=== PATIENT | male | born 1970 | race African-American/Black ===

== ENCOUNTER 2017-06-26 00:43 | Inpatient (IN) | payer MEDICAID ==
[~2017-06-26] VITALS: Ht 188 cm; Wt 93.8 kg
[2017-06-26] VITALS (7 sets, daily range): BP systolic 119–132; BP diastolic 58–77; PULSE 79–96; RESP 16–17; TEMP 96.5–97.9; O2SAT 96–100
[~2017-06-26 00:43] MED LIST: BACT800T5 PO; CIPR500T4 PO; LANTUS2P SC; NOVOLOGSS SQ
[2017-06-26] MEDS ORDERED: IOHEXOL 350 MG/ML 10 ML VIAL (for RAD DIAG) IVCONTRAST ONE (00:44)
[2017-06-26] MEDS ORDERED: ceFAZolin 2 GM PREMIX 50 ML ONE (00:48)
[2017-06-26 01:03] LABS: I-STAT POTASSIUM 3.7 MMOL/L (3.5-4.9); I-STAT SODIUM 135 MMOL/L (138-146)
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
[2017-06-26] MEDS ORDERED: HYDROmorphone HCL PF 1 MG/ML VIAL ONE (01:12)
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
[2017-06-26] MEDS: SODIUM CHLOR 0.9% 1000 ML INJ 1,000 ML IV SCH ×2 (01:14→11:28)
[2017-06-26] MEDS ORDERED: SODIUM CHLORIDE 0.9% FLUSH 10 ML FLUSH IV FLUSH PRN (01:15)
[2017-06-26] MEDS ORDERED: ONDANSETRON HCL 4 MG/2 ML VIAL IV PRN (01:15)
[2017-06-26] MEDS ORDERED: DEXTROSE 50% IN WATER 50 ML VIAL(D50) IV PUSH PRN (01:15)
[2017-06-26] MEDS ORDERED: GLUCAGON 1 MG/ML VIAL OTHER PRN (01:15)
[2017-06-26] MEDS ORDERED: ACETAMINOPHEN/HYDROcodone 325 MG/5 MG TAB PO PRN (01:15)
[2017-06-26] MEDS ORDERED: ENALAPRILAT 1.25 MG/ML VIAL IV PRN (01:15)
[2017-06-26] MEDS ORDERED: PANTOPRAZOLE SODIUM 40 MG VIAL IVP SCH (01:15)
[2017-06-26 01:19] LABS: ALCOHOL LESS THAN 3 MG/DL (0-5)
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
[2017-06-26 01:30] LABS: AUTOMATED NEUTROPHIL # 8.6 TH/MM3 (1.8-7.7); BASOPHIL # 0.2 TH/MM3 (0-0.2); BASOPHIL % 1.7 % (0.0-2.0); EOSINOPHIL # 0.3 TH/MM3 (0-0.4); HEMATOCRIT 41.1 % (39.0-51.0); LYMPH % 29.6 % (9.0-44.0); LYMPHOCYTE # 4.3 TH/MM3 (1.0-4.8); MEAN CELL VOLUME 65.4 FL (80.0-100.0); MEAN CORPUSCULAR HEMOGLOBIN 20.8 PG (27.0-34.0); MEAN CORPUSCULAR HGB CONC 31.8 % (32.0-36.0); MONO % 7.4 % (0.0-8.0); NEUT % 59.3 % (16.0-70.0); PLATELET COUNT 187 TH/MM3 (150-450); RED BLOOD COUNT 6.29 MIL/MM3 (4.50-5.90); RED CELL DISTRIBUTION WIDTH 19.6 % (11.6-17.2); WHITE BLOOD COUNT 14.4 TH/MM3 (4.0-11.0)
[2017-06-26] MEDS ORDERED: HYDROmorphone HCL PF 1 MG/ML VIAL IV PUSH ONE (01:30)
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
[2017-06-26 01:32] LABS: HEMO FLAGS AUTO DIFF
[2017-06-26 01:42] LABS: APTT (PATIENT) 19.4 SEC (24.3-30.1); PROTHROMBIN TIME - PATIENT 10.6 SEC (9.8-11.6)
[2017-06-26] MEDS: HYDROmorphone HCL PF 1 MG/ML VIAL IVP PRN ×2 (02:34→06:05)
[2017-06-26 03:39] LABS: BANDS 6 % (0-6); CORRECTED NUCLEATED RBC 6 /100 WBC (0-0); EOSINOPHILS 7 % (0-4); NEUTROPHIL # MANUAL DIFF 7.9 TH/MM3 (1.8-7.7); POLYS (SEG NEUTROPHILS) 52 % (16-70); SCAN/DIFF FINAL DIFF MANUAL; WBC DIFF SAMPLE 100
[2017-06-26 03:40] LABS: ACANTHOCYTES OCC (NORMAL); SPHEROCYTES 1+ (NORMAL); TARGET CELLS 2+ (NORMAL)
[2017-06-26 03:41] LABS: PLATELET ESTIMATE SMEAR NORMAL (NORMAL); PLATELET MORPHOLOGY ENLARGED (NORMAL)
[2017-06-26] MEDS: ACETAMINOPHEN/HYDROcodone 325 MG/5 MG TAB PO PRN ×4 (03:54→15:44)
[2017-06-26] MEDS ORDERED: LANTUS2P SQ ×2 (03:57→20:49)
[2017-06-26] MEDS: INSULIN NovoLIN REGULAR SUPPLEMENTAL SCALE SQ SCH ×2 (06:33→11:21)
[2017-06-26] MEDS ORDERED: LIDOCAINE HCL 5% PATCH T-DERMAL SCH (09:00)
[2017-06-26] MEDS ORDERED: DOCUSATE SODIUM 50 MG/SENNA 8.6 MG TAB PO SCH (09:00)
[2017-06-26] MEDS: ceFAZolin 2 GM PREMIX 50 ML IV SCH ×2 (09:06→15:02)
[2017-06-26] MEDS: METHOCARBAMOL 500 MG TAB PO SCH ×2 (09:08→15:43)
[2017-06-26] MEDS ORDERED: INSULIN DETEMIR 100 UNITS/ML VIAL SQ SCH (10:00)
[2017-06-26] MEDS ORDERED: SENN1TAB PO (11:17)
[2017-06-26] MEDS ORDERED: MAGN400S PO (11:17)
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
[2017-06-26] MEDS ORDERED: DIPHTH/TETANUS/ACEL PERTUSSIS (BOOSTER) 0.5 ML VIAL/PFS IM ONE (15:30)
[2017-06-26] MEDS ORDERED: MAGNESIUM HYDROXIDE SUSP 30 ML CUP PO SCH (21:00)
[2017-06-27] MEDS ORDERED: MAGN400S PO (13:48)
[2017-06-27] MEDS ORDERED: SENN1TAB PO (13:48)
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
== END 2017-06-26 16:31 | disposition home or self-care (01) | DRG 604 ==
LOC: NEPI 00:43 → MERGE 01:49 → EDBD 01:49 → NEDA 01:49 → N06B 04:45
PROVIDERS: ADMIT Surgery; ATTEND Surgery
DX: S21.139A Puncture wound without foreign body of unspecified front wall of thorax without penetration into thoracic cavity, initial encounter (principal); S22.42XB Multiple fractures of ribs, left side, initial encounter for open fracture; E11.51 Type 2 diabetes mellitus with diabetic peripheral angiopathy without gangrene; T87.89 Other complications of amputation stump; S71.132A Puncture wound without foreign body, left thigh, initial encounter; S27.321A Contusion of lung, unilateral, initial encounter; S21.132A Puncture wound without foreign body of left front wall of thorax without penetration into thoracic cavity, initial encounter; S27.329A Contusion of lung, unspecified, initial encounter; S31.139A Puncture wound of abdominal wall without foreign body, unspecified quadrant without penetration into peritoneal cavity, initial encounter; X95.9XXA Assault by unspecified firearm discharge, initial encounter; Y93.9 Activity, unspecified; Y92.9 Unspecified place or not applicable; I10 Essential (primary) hypertension
CPT/HCPCS: 71010; 71260; 73560; 74177; 80307; 82435; 82565; 82947; 82948; 84132; 84295; 84520; 85007; 85027; 85610; 85730; 86850; 86900; 86901; 96374; 96375; 99291; C9113; G0390; J0690; J1170; J7030; Q9967

== ENCOUNTER 2017-06-26 19:55 | Inpatient (IN) | payer MEDICAID ==
[~2017-06-26] VITALS: Ht 185.4 cm; Wt 101.0 kg
[~2017-06-26 19:55] MED LIST changes: +LANTUS2P SQ; +MAGN400S PO; +SENN1TAB PO
[2017-06-26 19:58] VITALS: BP 129/70; PULSE 98; RESP 20; TEMP 98.4; O2SAT 96
[2017-06-26] MEDS ORDERED: LANTUS2P SQ (20:49)
[2017-06-26 20:51] VITALS: BP 119/69; PULSE 83; RESP 18; O2SAT 98
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
[2017-06-26 21:21] VITALS: RESP 18; O2SAT 98
[2017-06-26] MEDS ORDERED: SODIUM CHLORIDE 0.9% FLUSH 10 ML FLUSH IVF PRN ×2 (21:30→23:30)
[2017-06-26] MEDS ORDERED: SODIUM CHLOR 0.9% 1000 ML INJ 1,000 ML IV ONE (21:30)
[2017-06-26] MEDS ORDERED: MORPHINE SULFATE 4 MG/ML INJ IV PUSH ONE (21:30)
[2017-06-26 22:11] LABS: BASOPHIL # 0.1 TH/MM3 (0-0.2); BASOPHIL % 0.8 % (0.0-2.0); EOSINOPHIL # 0.2 TH/MM3 (0-0.4); HEMATOCRIT 35.2 % (39.0-51.0); LYMPH % 17.9 % (9.0-44.0); MEAN CELL VOLUME 64.6 FL (80.0-100.0); MEAN CORPUSCULAR HEMOGLOBIN 21.2 PG (27.0-34.0); MEAN CORPUSCULAR HGB CONC 32.7 % (32.0-36.0); MONO % 9.3 % (0.0-8.0); PLATELET COUNT 142 TH/MM3 (150-450); RED BLOOD COUNT 5.45 MIL/MM3 (4.50-5.90); RED CELL DISTRIBUTION WIDTH 19.3 % (11.6-17.2); WHITE BLOOD COUNT 11.4 TH/MM3 (4.0-11.0)
[2017-06-26 22:13] LABS: HEMO FLAGS AUTO DIFF
[2017-06-26 22:14] LABS: APTT (PATIENT) 24.4 SEC (24.3-30.1); PROTHROMBIN TIME - PATIENT 10.6 SEC (9.8-11.6)
[2017-06-26 22:29] LABS: BICARBONATE 25.7 MEQ/L (21.0-32.0); MAGNESIUM 2.1 MG/DL (1.5-2.5); POTASSIUM 3.9 MEQ/L (3.5-5.1)
[2017-06-26 22:30] VITALS: BP 113/66; PULSE 80; RESP 18; O2SAT 98
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
[2017-06-26 23:03] LABS: BANDS 4 % (0-6); CORRECTED NUCLEATED RBC 1 /100 WBC (0-0); EOSINOPHILS 2 % (0-4); NEUTROPHIL # MANUAL DIFF 8.6 TH/MM3 (1.8-7.7); POLYS (SEG NEUTROPHILS) 71 % (16-70); SCAN/DIFF FINAL DIFF MANUAL; WBC DIFF SAMPLE 100
[2017-06-26 23:04] LABS: PLATELET ESTIMATE SMEAR NORMAL (NORMAL)
[2017-06-26 23:05] LABS: PLATELET MORPHOLOGY NORMAL (NORMAL); STOMATOCYTES 1+ (NORMAL); TARGET CELLS 1+ (NORMAL)
[2017-06-26 23:08] LABS: POLYCHROMASIA 3.1 % (0.0-1.9)
[2017-06-26 23:09] LABS: SPHEROCYTES OCC (NORMAL)
[2017-06-26 23:10] LABS: ACANTHOCYTES 1+ (NORMAL)
[2017-06-26] MEDS ORDERED: ACETAMINOPHEN 325 MG TAB PO PRN (23:30)
[2017-06-26] MEDS ORDERED: ONDANSETRON HCL 4 MG/2 ML VIAL IV PRN (23:30)
[2017-06-26] MEDS ORDERED: SODIUM CHLORIDE 0.9% FLUSH 10 ML FLUSH IV FLUSH PRN (23:45)
[2017-06-27] VITALS (26 sets, daily range): BP systolic 119–156; BP diastolic 63–86; PULSE 75–113; RESP 16–20; TEMP 97.8–98.7; O2SAT 95–99
[2017-06-27] MEDS: MORPHINE SULFATE 4 MG/ML INJ IV PUSH PRN ×4 (00:22→12:18)
[2017-06-27 01:20] LABS: CKMB 6.8 NG/ML (0.5-3.6)
[2017-06-27] MEDS ORDERED: GLUCAGON 1 MG/ML VIAL OTHER PRN (01:45)
[2017-06-27] MEDS ORDERED: DEXTROSE 50% IN WATER 50 ML VIAL(D50) IV PRN (01:45)
[2017-06-27] MEDS: ACETAMINOPHEN/HYDROcodone 325 MG/5 MG TAB PO PRN ×2 (02:15→10:00)
[2017-06-27 05:17] LABS: CKMB 6.8 NG/ML (0.5-3.6)
[2017-06-27] MEDS: INSULIN ASPART SUPPLEMENTAL SCALE SQ SCH ×4 (06:18→21:00)
[2017-06-27] MEDS ORDERED: ACETAMINOPHEN 325 MG TAB PO PRN (07:45)
[2017-06-27] MEDS ORDERED: SODIUM CHLORIDE 0.9% FLUSH 10 ML FLUSH IV FLUSH PRN (07:45)
[2017-06-27] MEDS ORDERED: ENALAPRILAT 1.25 MG/ML VIAL IV PRN (07:45)
[2017-06-27] MEDS ORDERED: ONDANSETRON HCL 4 MG/2 ML VIAL IV PRN (07:45)
--- NOTE | 2017-06-27 08:21 | EKG ---
Date Performed: 06/27/2017 Time Performed: 00:11:27 PTAGE: 46 years EKG: Sinus rhythm T-WAVE ABNORMALITY, CONSIDER ANTEROLATERAL ISCHEMIA ABNORMAL ECG PREVIOUS TRACING : 06/26/2017 21.25 No significant change from previous tracing noted. DOCTOR: Justin Piña Interpretating Date/Time 06/27/2017 08:21:02
--- NOTE | 2017-06-27 08:25 | EKG ---
Date Performed: 06/26/2017 Time Performed: 21:25:48 PTAGE: 46 years EKG: Sinus rhythm T-WAVE ABNORMALITY, CONSIDER ANTEROLATERAL ISCHEMIA ABNORMAL ECG PREVIOUS TRACING : 11/09/2015 19.03 Compared to previous tracing, anterolateral T wave changes are now present. DOCTOR: Justin Piña Interpretating Date/Time 06/27/2017 08:23:34
[2017-06-27] MEDS: FAMOTIDINE 20 MG TAB PO SCH ×2 (08:36→21:28)
[2017-06-27] MEDS: DOCUSATE SODIUM 50 MG/SENNA 8.6 MG TAB PO SCH ×2 (08:36→21:28)
[2017-06-27] MEDS ORDERED: SODIUM CHLORIDE 0.9% FLUSH 10 ML FLUSH IV FLUSH SCH ×2 (09:00)
[2017-06-27] MEDS: SODIUM CHLORIDE 0.9% FLUSH 10 ML FLUSH IV FLUSH SCH ×2 (09:00→21:29)
[2017-06-27] MEDS: METHOCARBAMOL 500 MG TAB PO SCH ×3 (10:00→21:28)
[2017-06-27] MEDS: LIDOCAINE HCL 5% PATCH T-DERMAL SCH (10:01)
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
--- NOTE | 2017-06-27 11:17 | EKG ---
Date Performed: 06/27/2017 Time Performed: 03:37:42 PTAGE: 46 years EKG: Sinus rhythm Ant/septal and lateral T wave changes may be due to myocardial ischemia Abnormal ECG PREVIOUS TRACING : 06/27/2017 00.11 No significant change from previous tracing noted. DOCTOR: Justin Piña Interpretating Date/Time 06/27/2017 11:15:24
[2017-06-27] MEDS ORDERED: MAGN400S PO (13:48)
[2017-06-27] MEDS ORDERED: SENN1TAB PO (13:48)
[2017-06-27] MEDS ORDERED: oxyCODONE/ACETAMINOPHEN 5 MG/325 MG TAB PO PRN (15:30)
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
[2017-06-27] MEDS: HYDROmorphone HCL PF 1 MG/ML VIAL IV PUSH PRN ×2 (18:58→23:00)
[2017-06-27] MEDS: INSULIN DETEMIR 100 UNITS/ML VIAL SQ SCH (21:00)
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
[2017-06-27] MEDS: MAGNESIUM HYDROXIDE SUSP 30 ML CUP PO SCH (21:27)
[2017-06-27] MEDS: oxyCODONE/ACETAMINOPHEN 5 MG/325 MG TAB PO PRN (21:29)
[2017-06-28] VITALS (21 sets, daily range): BP systolic 106–156; BP diastolic 70–82; PULSE 72–99; RESP 18–20; TEMP 97.3–98.7; O2SAT 95–99
[2017-06-28] MEDS: HYDROmorphone HCL PF 1 MG/ML VIAL IV PUSH PRN ×4 (03:10→20:00)
[2017-06-28] MEDS: METHOCARBAMOL 500 MG TAB PO SCH ×3 (05:26→20:00)
[2017-06-28] MEDS: INSULIN ASPART SUPPLEMENTAL SCALE SQ SCH ×4 (05:27→20:06)
--- NOTE | 2017-06-28 05:58 | RADRPT ---
EXAM DATE/TIME: 06/28/2017 04:42 [place] COMPARISON: CHEST SINGLE AP, June 26, 2017, 21:43. INDICATIONS : Shortness of breath MEDICAL HISTORY : Hypertension. Diabetes mellitus type 2. SURGICAL HISTORY : None. ENCOUNTER: Subsequent ACUITY: 3 days PAIN SCORE: 7/10 LOCATION: Bilateral chest FINDINGS: A single view of the chest demonstrates a persistent rounded infiltrate in the left lower lobe. The cardiomediastinal contours are unremarkable. Osseous structures are intact. CONCLUSION: Normal examination with a persistent focal rounded infiltrate in the left lower lobe. Familia Agarwal MD on June 28, 2017 at 5:56 Board Certified Radiologist. This report was verified electronically.
[2017-06-28 07:05] LABS: AUTOMATED NEUTROPHIL # 8.1 TH/MM3 (1.8-7.7); BASOPHIL # 0.1 TH/MM3 (0-0.2); BASOPHIL % 0.6 % (0.0-2.0); EOSINOPHIL # 0.3 TH/MM3 (0-0.4); EOSINOPHIL % 2.4 % (0.0-4.0); HEMATOCRIT 34.2 % (39.0-51.0); HEMO FLAGS DIFF FINAL; LYMPH % 15.9 % (9.0-44.0); LYMPHOCYTE # 1.8 TH/MM3 (1.0-4.8); MEAN CELL VOLUME 64.4 FL (80.0-100.0); MEAN CORPUSCULAR HGB CONC 32.6 % (32.0-36.0); NEUT % 71.1 % (16.0-70.0); PLATELET COUNT 128 TH/MM3 (150-450); RED BLOOD COUNT 5.31 MIL/MM3 (4.50-5.90); RED CELL DISTRIBUTION WIDTH 19.1 % (11.6-17.2); WHITE BLOOD COUNT 11.5 TH/MM3 (4.0-11.0)
[2017-06-28 07:12] LABS: ALT (GPT) 29 U/L (12-78); ANION GAP 9 MEQ/L (5-15); AST (GOT) 22 U/L (15-37); BICARBONATE 27.5 MEQ/L (21.0-32.0); BLOOD UREA NITROGEN 12 MG/DL (7-18); CHLORIDE 100 MEQ/L (98-107); GLOMERULAR FILTRATION RATE 111 ML/MIN (>89); POTASSIUM 4.1 MEQ/L (3.5-5.1); SODIUM (NA) 136 MEQ/L (136-145)
[2017-06-28 07:14] LABS: ALKALINE PHOSPHATASE 140 U/L (45-117); TOTAL BILIRUBIN ADULT 1.3 MG/DL (0.2-1.0)
[2017-06-28] MEDS: DOCUSATE SODIUM 50 MG/SENNA 8.6 MG TAB PO SCH ×2 (09:00→20:00)
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
[2017-06-28] MEDS: LIDOCAINE HCL 5% PATCH T-DERMAL SCH (10:20)
[2017-06-28] MEDS: FAMOTIDINE 20 MG TAB PO SCH ×2 (10:26→20:00)
[2017-06-28] MEDS: INSULIN DETEMIR 100 UNITS/ML VIAL SQ SCH ×2 (10:26→20:04)
[2017-06-28] MEDS: SODIUM CHLORIDE 0.9% FLUSH 10 ML FLUSH IV FLUSH SCH ×2 (10:27→20:00)
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
[2017-06-28] MEDS: oxyCODONE/ACETAMINOPHEN 5 MG/325 MG TAB PO PRN ×2 (12:44→21:39)
--- NOTE | 2017-06-28 15:37 | ECHRPT ---
Indication: CHEST PAIN CONCLUSIONS Normal left ventricular size and wall thickness. The left ventricular systolic function is normal wi th an estimated ejection fraction in the range of 60-65%. Left ventricular diastolic function parameters a re normal. BP: 121 / 78 HR: 83 Rhythm: Sinus MEASUREMENTS (Male / Female) Normal Values Technical Quality:Good 2D ECHO LV Diastolic Diameter PLAX 4.8 cm 4.2 - 5.9 / 3.9 - 5.3 cm LV Systolic Diameter PLAX 3.1 cm IVS Diastolic Thickness 1.0 cm 0.6 - 1.0 / 0.6 - 0.9 cm LVPW Diastolic Thickness 1.0 cm 0.6 - 1.0 / 0.6 - 0.9 cm LV Relative Wall Thickness 0.4 RV Internal Dim ED PLAX 2.6 cm LVOT Diameter 2.1 cm LA Systolic Diameter LX 3.0 cm 3.0 - 4.0 / 2.7 - 3.8 cm LV Ejection Fraction MOD 4C 61.7 % LV Cardiac Index MOD 4C 2602.8 cm/minm LV Ejection Fraction 4C AL 62.7 % LV Cardiac Index 4C AL 2730.7 cm/minm M-MODE Aortic Root Diameter MM 3.5 cm AV Cusp Separation MM 2.3 cm DOPPLER AV Peak Velocity 107.0 cm/s AV Peak Gradient 4.6 mmHg LVOT Peak Velocity 88.8 cm/s LVOT Peak Gradient 3.2 mmHg AV Area Cont Eq pk 2.9 cm MV Area PHT 4.4 cm Mitral E Point Velocity 88.8 cm/s Mitral A Point Velocity 72.6 cm/s Mitral E to A Ratio 1.2 TR Peak Velocity 236.0 cm/s TR Peak Gradient 22.3 mmHg PV Peak Velocity 103.0 cm/s PV Peak Gradient 4.2 mmHg FINDINGS LEFT VENTRICLE Normal left ventricular size and wall thickness. The left ventricular systolic function is normal wi th an estimated ejection fraction in the range of 60-65%. Left ventricular diastolic function parameters a re normal. RIGHT VENTRICLE Normal right ventricular size and systolic function. LEFT ATRIUM The left atrial size is normal. RIGHT ATRIUM The right atrial size is normal. ATRIAL SEPTUM Normal atrial septal thickness without atrial level shunting by limited color doppler interrogation. AORTA The aortic root and proximal ascending aorta are normal in size on limited imaging. MITRAL VALVE Structurally normal mitral valve. No mitral valve stenosis or regurgitation. AORTIC VALVE Trileaflet aortic valve. No aortic valve stenosis or regurgitation. TRICUSPID VALVE There is trace tricuspid valve regurgitation. The estimated pulmonary arterial pressure is 32 mmHg. PULMONARY VALVE The pulmonary valve is not well visualized. VESSELS The inferior vena cava is normal in size. PERICARDIUM No pericardial effusion. Familia Brito MD, FACC (Electronically Signed) Final Date:28 June 2017 15:36
[2017-06-28] MEDS: MAGNESIUM HYDROXIDE SUSP 30 ML CUP PO SCH (20:00)
[2017-06-29] VITALS (27 sets, daily range): BP systolic 106–150; BP diastolic 52–90; PULSE 71–101; RESP 18–20; TEMP 98.1–99; O2SAT 95–98
[2017-06-29] MEDS: HYDROmorphone HCL PF 1 MG/ML VIAL IV PUSH PRN ×6 (00:11→19:57)
[2017-06-29] MEDS: oxyCODONE/ACETAMINOPHEN 5 MG/325 MG TAB PO PRN ×4 (01:57→19:56)
--- NOTE | 2017-06-29 03:59 | RADRPT ---
EXAM DATE/TIME: 06/29/2017 03:13 [place] COMPARISON: CHEST SINGLE AP, June 28, 2017, 4:42. INDICATIONS : Shortness of breath, possible pulmonary disease. MEDICAL HISTORY : Hypertension. Diabetes mellitus type II. SURGICAL HISTORY : Left BKA ENCOUNTER: Subsequent ACUITY: 4 - 6 days PAIN SCORE: 6/10 LOCATION: Bilateral chest FINDINGS: A single view of the chest demonstrates a persistent infiltrate in the left lower lobe. The cardiome diastinal contours are unremarkable. Osseous structures are intact. CONCLUSION: Persistent infiltrate in the left lower lobe. Right lung is clear.. Familia Agarwal MD on June 29, 2017 at 3:57 Board Certified Radiologist. This report was verified electronically.
[2017-06-29] MEDS: METHOCARBAMOL 500 MG TAB PO SCH ×3 (05:43→21:42)
[2017-06-29] MEDS: INSULIN ASPART SUPPLEMENTAL SCALE SQ SCH ×4 (05:43→21:51)
[2017-06-29 06:14] LABS: HEMATOCRIT 37.4 % (39.0-51.0); MEAN CELL VOLUME 64.4 FL (80.0-100.0); MEAN CORPUSCULAR HEMOGLOBIN 21.1 PG (27.0-34.0); MEAN CORPUSCULAR HGB CONC 32.8 % (32.0-36.0); PLATELET COUNT 146 TH/MM3 (150-450); RED CELL DISTRIBUTION WIDTH 18.6 % (11.6-17.2); REVIEW FLAG FINAL
[2017-06-29 07:09] LABS: BICARBONATE 28.1 MEQ/L (21.0-32.0); POTASSIUM 4.1 MEQ/L (3.5-5.1)
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
[2017-06-29] MEDS: SODIUM CHLORIDE 0.9% FLUSH 10 ML FLUSH IV FLUSH SCH ×2 (09:00→19:59)
[2017-06-29] MEDS: INSULIN DETEMIR 100 UNITS/ML VIAL SQ SCH ×2 (09:00→21:50)
[2017-06-29] MEDS: FAMOTIDINE 20 MG TAB PO SCH ×2 (09:09→21:44)
[2017-06-29] MEDS: DOCUSATE SODIUM 50 MG/SENNA 8.6 MG TAB PO SCH ×2 (09:10→21:43)
[2017-06-29] MEDS: LIDOCAINE HCL 5% PATCH T-DERMAL SCH (09:11)
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
[2017-06-29] MEDS: CEFEPIME INJ 1,000 MG in SODIUM CHLORIDE 0.9% INJ 100 ML IV SCH (20:47)
[2017-06-29] MEDS: MAGNESIUM HYDROXIDE SUSP 30 ML CUP PO SCH (21:42)
[2017-06-29] MEDS: AZITHROMYCIN INJ 500 MG in SODIUM CHLOR 0.9% 250 ML INJ 250 ML IV SCH (21:45)
[2017-06-30] VITALS (25 sets, daily range): BP systolic 113–145; BP diastolic 66–82; PULSE 68–96; RESP 18–20; TEMP 97.3–98.7; O2SAT 94–98
[2017-06-30] MEDS: oxyCODONE/ACETAMINOPHEN 5 MG/325 MG TAB PO PRN ×6 (00:05→21:09)
[2017-06-30] MEDS: HYDROmorphone HCL PF 1 MG/ML VIAL IV PUSH PRN ×6 (00:07→21:11)
[2017-06-30] MEDS: METHOCARBAMOL 500 MG TAB PO SCH ×3 (05:56→21:58)
[2017-06-30] MEDS: INSULIN ASPART SUPPLEMENTAL SCALE SQ SCH ×4 (05:59→21:17)
[2017-06-30 07:37] LABS: AUTOMATED NEUTROPHIL # 8.6 TH/MM3 (1.8-7.7); BASOPHIL # 0.1 TH/MM3 (0-0.2); BASOPHIL % 0.6 % (0.0-2.0); EOSINOPHIL # 0.3 TH/MM3 (0-0.4); EOSINOPHIL % 2.1 % (0.0-4.0); HEMATOCRIT 34.4 % (39.0-51.0); LYMPH % 16.7 % (9.0-44.0); LYMPHOCYTE # 2.1 TH/MM3 (1.0-4.8); MEAN CELL VOLUME 64.7 FL (80.0-100.0); MEAN CORPUSCULAR HEMOGLOBIN 21.1 PG (27.0-34.0); MEAN CORPUSCULAR HGB CONC 32.6 % (32.0-36.0); MONO % 11.1 % (0.0-8.0); NEUT % 69.5 % (16.0-70.0); PLATELET COUNT 164 TH/MM3 (150-450); RED BLOOD COUNT 5.32 MIL/MM3 (4.50-5.90); RED CELL DISTRIBUTION WIDTH 18.7 % (11.6-17.2); WHITE BLOOD COUNT 12.4 TH/MM3 (4.0-11.0)
[2017-06-30 07:42] LABS: HEMO FLAGS AUTO DIFF
[2017-06-30] MEDS: FAMOTIDINE 20 MG TAB PO SCH ×2 (08:17→21:08)
[2017-06-30] MEDS: SODIUM CHLORIDE 0.9% FLUSH 10 ML FLUSH IV FLUSH SCH ×2 (08:17→21:08)
[2017-06-30] MEDS: DOCUSATE SODIUM 50 MG/SENNA 8.6 MG TAB PO SCH ×2 (08:17→21:08)
[2017-06-30] MEDS: LIDOCAINE HCL 5% PATCH T-DERMAL SCH (08:18)
[2017-06-30] MEDS: CEFEPIME INJ 1,000 MG in SODIUM CHLORIDE 0.9% INJ 100 ML IV SCH ×2 (08:18→21:06)
[2017-06-30] MEDS: INSULIN DETEMIR 100 UNITS/ML VIAL SQ SCH ×2 (08:55→21:16)
[2017-06-30 08:56] LABS: BANDS 3 % (0-6); CORRECTED NUCLEATED RBC 3 /100 WBC (0-0); EOSINOPHILS 2 % (0-4); NEUTROPHIL # MANUAL DIFF 7.7 TH/MM3 (1.8-7.7); POLYS (SEG NEUTROPHILS) 59 % (16-70); WBC DIFF SAMPLE 100
[2017-06-30 08:57] LABS: TARGET CELLS 2+ (NORMAL)
[2017-06-30 08:58] LABS: PLATELET ESTIMATE SMEAR NORMAL (NORMAL); PLATELET MORPHOLOGY ENLARGED (NORMAL); POLYCHROMASIA 2.7 % (0.0-1.9); SCAN/DIFF FINAL DIFF MANUAL
--- NOTE | 2017-06-30 09:40 | RADRPT ---
EXAM DATE/TIME: 06/30/2017 09:29 [place] COMPARISON: CHEST SINGLE AP, May 09, 2016, 21:37. CHEST SINGLE AP, June 28, 2017, 4:42. CHEST SINGLE AP, Jun, 3:13. INDICATIONS : Abnormal chest x-ray. RADIATION DOSE: 9.55 CTDIvol (mGy) MEDICAL HISTORY : Hypertension. Cardiovascular disease diabetes SURGICAL HISTORY : None. ENCOUNTER: Initial ACUITY: 1 day PAIN SCALE: 0/10 LOCATION: Bilateral chest TECHNIQUE: Volumetric scanning of the chest was performed. Using automated exposure control and adjustment of t he mA and/or kV according to patient size, radiation dose was kept as low as reasonably achievable to obtain optimal diagnostic quality images. DICOM format image data is available electronically for r eview and comparison. Follow-up recommendations for detected pulmonary nodules are based at a minimum on nodule size and pa tient risk factors according to Fleischner Society Guidelines. FINDINGS: LUNGS: There is mild volume loss identified within the left hemithorax with a small left-sided pleural effus ion. There is confluent airspace consolidation involving the basilar aspect of the left upper lobe an d lingula as well as consolidation of the left lower lobe. No evidence of endobronchial lesion. There is mild dependent atelectasis seen within the right lung base. PLEURAE: Small left-sided pleural effusion. MEDIASTINUM: The heart and great vessels demonstrate no acute abnormality. There is no mediastinal or hilar lymph adenopathy. AXILLAE: Within normal limits. No lymphadenopathy. MUSCULOSKELETAL: Within normal limits for patient age. MISCELLANEOUS: The visualized upper abdominal organs demonstrate no acute abnormality. CONCLUSION: Small left-sided pleural effusion, atelectasis of the left lower lobe and airspace consolidation invo lving the lingula and basilar aspect of the left upper lobe.. Dipti Domínguez MD on June 30, 2017 at 9:36 Board Certified Radiologist. This report was verified electronically.
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
[2017-06-30] MEDS: RESP: ALBUTEROL 2.5 MG/IPRATROPIUM 0.5 MG NEB (SCH) NEB ×2 (13:58→20:09)
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
[2017-06-30] MEDS: MAGNESIUM HYDROXIDE SUSP 30 ML CUP PO SCH (21:08)
[2017-06-30] MEDS: AZITHROMYCIN INJ 500 MG in SODIUM CHLOR 0.9% 250 ML INJ 250 ML IV SCH (22:15)
[2017-06-30] MEDS ORDERED: HYDROmorphone HCL PF 1 MG/ML VIAL IV PUSH ONE (22:45)
[2017-07-01] VITALS (27 sets, daily range): BP systolic 105–145; BP diastolic 57–82; PULSE 66–102; RESP 16–20; TEMP 97.4–99; O2SAT 94–100
[2017-07-01] MEDS: oxyCODONE/ACETAMINOPHEN 5 MG/325 MG TAB PO PRN ×5 (00:36→21:03)
[2017-07-01] MEDS: HYDROmorphone HCL PF 1 MG/ML VIAL IV PUSH PRN ×5 (04:08→22:26)
[2017-07-01] MEDS: METHOCARBAMOL 500 MG TAB PO SCH ×3 (06:05→21:02)
[2017-07-01] MEDS: INSULIN ASPART SUPPLEMENTAL SCALE SQ SCH ×4 (06:08→20:56)
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
[2017-07-01] MEDS: CEFEPIME INJ 1,000 MG in SODIUM CHLORIDE 0.9% INJ 100 ML IV SCH ×2 (08:00→21:03)
[2017-07-01] MEDS: RESP: ALBUTEROL 2.5 MG/IPRATROPIUM 0.5 MG NEB (SCH) NEB ×3 (08:24→20:07)
[2017-07-01] MEDS: LIDOCAINE HCL 5% PATCH T-DERMAL SCH (08:47)
[2017-07-01] MEDS: FAMOTIDINE 20 MG TAB PO SCH ×2 (08:57→21:02)
[2017-07-01] MEDS: SODIUM CHLORIDE 0.9% FLUSH 10 ML FLUSH IV FLUSH SCH ×2 (08:57→21:00)
[2017-07-01] MEDS: DOCUSATE SODIUM 50 MG/SENNA 8.6 MG TAB PO SCH ×2 (08:58→21:02)
[2017-07-01] MEDS: INSULIN DETEMIR 100 UNITS/ML VIAL SQ SCH ×2 (09:04→20:56)
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
[2017-07-01 12:04] LABS: AUTOMATED NEUTROPHIL # 8.4 TH/MM3 (1.8-7.7); BASOPHIL # 0.1 TH/MM3 (0-0.2); BASOPHIL % 0.7 % (0.0-2.0); EOSINOPHIL # 0.3 TH/MM3 (0-0.4); EOSINOPHIL % 2.3 % (0.0-4.0); HEMATOCRIT 37.5 % (39.0-51.0); LYMPH % 18.1 % (9.0-44.0); LYMPHOCYTE # 2.3 TH/MM3 (1.0-4.8); MEAN CELL VOLUME 65.8 FL (80.0-100.0); MEAN CORPUSCULAR HEMOGLOBIN 21.1 PG (27.0-34.0); MEAN CORPUSCULAR HGB CONC 32.1 % (32.0-36.0); MONO % 11.6 % (0.0-8.0); NEUT % 67.3 % (16.0-70.0); PLATELET COUNT 166 TH/MM3 (150-450); RED BLOOD COUNT 5.71 MIL/MM3 (4.50-5.90); RED CELL DISTRIBUTION WIDTH 19.1 % (11.6-17.2); WHITE BLOOD COUNT 12.4 TH/MM3 (4.0-11.0)
[2017-07-01] MEDS ORDERED: REGADENOSON INJ 0.4 MG/5 ML SYR IV ONE (12:06)
[2017-07-01 12:08] LABS: HEMO FLAGS AUTO DIFF
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
--- NOTE | 2017-07-01 14:16 | RADRPT ---
EXAM DATE/TIME: 07/01/2017 11:26 [place] COMPARISON: MYOCARDIAL PERF PHARM SPECT, GATED W/EF, February 16, 2011, 9:35. INDICATIONS : Substernal chest pain. Angina. DOSE: 30 mCi Tc99m Myoview at stress. 10.2 mCi Tc99m Myoview at rest. 0.4 mg Lexiscan STRESS SYMPTOMS: None noted. EJECTION FRACTION: 64% MEDICAL HISTORY : Hypertension. Diabetes mellitus type 2. Asthma. SURGICAL HISTORY : Left below the knee amputation. ENCOUNTER: Initial ACUITY: 3 days PAIN SCALE: 6/10 LOCATION: Substernal chest TECHNIQUE: The patient underwent pharmacologic stress with infusion of prescribed dose. Continuous ECG tracing was monitored during stress. Gated SPECT imaging was performed after stress and conventional SPECT i maging was performed at rest. The examination was performed on a SPECT/CT scanner, both attenuation and non-corrected datasets were reviewed. FINDINGS: The best perfused myocardium at stress is small segment of the anterior lateral wall. There is minimal redistribution in the anterior septal wall and the inferior septal wall. Moderate gu t activity does obscure the inferior wall. There is mild inferior septal hypokinesis and ejection fraction of 64%. CONCLUSION: Stress-induced ischemia as described above. RISK CATEGORY: Low (<1% Annual Mortality Rate) Vinicio Segura MD FACR on July 01, 2017 at 14:12 Board Certified Radiologist. This report was verified electronically.
[2017-07-01 14:22] LABS: POLYCHROMASIA 2.6 % (0.0-1.9); SPHEROCYTES 1+ (NORMAL); TARGET CELLS 1+ (NORMAL)
[2017-07-01 14:23] LABS: PLATELET ESTIMATE SMEAR NORMAL (NORMAL); PLATELET MORPHOLOGY ENLARGED (NORMAL); SCAN/DIFF AUTO DIFF CONFIRMED
--- NOTE | 2017-07-01 14:30 | EKG ---
Date Performed: 07/01/2017 Time Performed: 05:17:10 PTAGE: 46 years EKG: Sinus rhythm Prolonged QT interval Possible left ventricular hypertrophy Ant/septal and lateral ST-T changes may be due to hypertrophy and/or ischemia Abnormal ECG PREVIOUS TRACING : 06/27/2017 03.37 Compared to prior tracing no significant change DOCTOR: Obed Hamilton Interpretating Date/Time 07/01/2017 14:26:29
[2017-07-01] MEDS ORDERED: LACTULOSE SYRUP 20 GM/30 ML CUP PO ONE (16:00)
[2017-07-01] MEDS: MAGNESIUM HYDROXIDE SUSP 30 ML CUP PO SCH (21:03)
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
[2017-07-01] MEDS: AZITHROMYCIN INJ 500 MG in SODIUM CHLOR 0.9% 250 ML INJ 250 ML IV SCH (22:23)
[2017-07-02] VITALS (26 sets, daily range): BP systolic 110–146; BP diastolic 67–94; PULSE 56–100; RESP 18–22; TEMP 98.4–99.6; O2SAT 94–98
[2017-07-02] MEDS: HYDROmorphone HCL PF 1 MG/ML VIAL IV PUSH PRN ×3 (04:41→13:09)
[2017-07-02] MEDS: METHOCARBAMOL 500 MG TAB PO SCH ×3 (06:11→21:40)
[2017-07-02] MEDS: INSULIN ASPART SUPPLEMENTAL SCALE SQ SCH ×4 (06:22→21:59)
[2017-07-02 07:00] LABS: AUTOMATED NEUTROPHIL # 10.3 TH/MM3 (1.8-7.7); BASOPHIL # 0.1 TH/MM3 (0-0.2); BASOPHIL % 0.5 % (0.0-2.0); EOSINOPHIL # 0.3 TH/MM3 (0-0.4); EOSINOPHIL % 2.1 % (0.0-4.0); HEMATOCRIT 34.1 % (39.0-51.0); HEMO FLAGS DIFF FINAL; LYMPH % 14.4 % (9.0-44.0); MEAN CELL VOLUME 63.8 FL (80.0-100.0); MEAN CORPUSCULAR HGB CONC 32.9 % (32.0-36.0); PLATELET COUNT 164 TH/MM3 (150-450); RED BLOOD COUNT 5.35 MIL/MM3 (4.50-5.90); RED CELL DISTRIBUTION WIDTH 18.8 % (11.6-17.2); WHITE BLOOD COUNT 14.1 TH/MM3 (4.0-11.0)
[2017-07-02 07:20] LABS: POTASSIUM 4.2 MEQ/L (3.5-5.1)
[2017-07-02] MEDS: RESP: ALBUTEROL 2.5 MG/IPRATROPIUM 0.5 MG NEB (SCH) NEB ×3 (07:34→19:36)
[2017-07-02] MEDS: CEFEPIME INJ 1,000 MG in SODIUM CHLORIDE 0.9% INJ 100 ML IV SCH ×2 (08:00→21:57)
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
[2017-07-02] MEDS: FAMOTIDINE 20 MG TAB PO SCH ×2 (09:00→20:25)
[2017-07-02] MEDS: DOCUSATE SODIUM 50 MG/SENNA 8.6 MG TAB PO SCH ×2 (09:00→20:25)
[2017-07-02] MEDS: INSULIN DETEMIR 100 UNITS/ML VIAL SQ SCH ×2 (09:01→22:01)
[2017-07-02] MEDS: SODIUM CHLORIDE 0.9% FLUSH 10 ML FLUSH IV FLUSH SCH ×2 (09:03→22:01)
[2017-07-02] MEDS: LIDOCAINE HCL 5% PATCH T-DERMAL SCH (09:04)
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
[2017-07-02] MEDS: ENOXAPARIN SODIUM 40 MG/0.4 ML SYRINGE SQ SCH (12:05)
[2017-07-02] MEDS: oxyCODONE/ACETAMINOPHEN 5 MG/325 MG TAB PO PRN ×3 (12:13→20:25)
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
[2017-07-02] MEDS ORDERED: fentaNYL 50 MCG/HR PATCH T-DERMAL SCH (15:00)
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
[2017-07-02] MEDS: MAGNESIUM HYDROXIDE SUSP 30 ML CUP PO SCH (20:26)
[2017-07-02] MEDS: AZITHROMYCIN INJ 500 MG in SODIUM CHLOR 0.9% 250 ML INJ 250 ML IV SCH (21:57)
[2017-07-03] VITALS (20 sets, daily range): BP systolic 124–136; BP diastolic 66–86; PULSE 64–88; RESP 18–20; TEMP 97.3–98.5; O2SAT 96–99
[2017-07-03] MEDS: oxyCODONE/ACETAMINOPHEN 5 MG/325 MG TAB PO PRN ×4 (00:18→15:13)
--- NOTE | 2017-07-03 05:25 | RADRPT ---
EXAM DATE/TIME: 07/03/2017 04:57 [facility] COMPARISON: CHEST SINGLE AP, June 29, 2017, 3:13. INDICATIONS : Short of breath. MEDICAL HISTORY : Hypertension. Diabetes mellitus type II. SURGICAL HISTORY : None. ENCOUNTER: Subsequent ACUITY: 1 week PAIN SCORE: 0/10 LOCATION: Bilateral chest FINDINGS: Portable AP view of the chest demonstrates a normal-sized cardiac silhouette. Lungs are underinflated and there is a stable small left basilar pleural-parenchymal opacity. Right lung is clear. No pneumo thorax is seen. CONCLUSION: Stable chest x-ray with left basilar opacity likely representing pleural effusion with associated vol ume loss and/or airspace consolidation. Robert Salazar MD on July 03, 2017 at 5:23 Board Certified Radiologist. This report was verified electronically.
[2017-07-03] MEDS: METHOCARBAMOL 500 MG TAB PO SCH ×2 (06:18→15:13)
[2017-07-03] MEDS: INSULIN ASPART SUPPLEMENTAL SCALE SQ SCH ×2 (06:18→12:47)
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
[2017-07-03] MEDS: RESP: ALBUTEROL 2.5 MG/IPRATROPIUM 0.5 MG NEB (SCH) NEB ×2 (08:21→13:43)
[2017-07-03] MEDS: DOCUSATE SODIUM 50 MG/SENNA 8.6 MG TAB PO SCH (09:00)
[2017-07-03] MEDS: CEFEPIME INJ 1,000 MG in SODIUM CHLORIDE 0.9% INJ 100 ML IV SCH (09:06)
[2017-07-03] MEDS: LIDOCAINE HCL 5% PATCH T-DERMAL SCH (09:07)
[2017-07-03] MEDS: FAMOTIDINE 20 MG TAB PO SCH (09:08)
[2017-07-03] MEDS: INSULIN DETEMIR 100 UNITS/ML VIAL SQ SCH (09:10)
[2017-07-03] MEDS: SODIUM CHLORIDE 0.9% FLUSH 10 ML FLUSH IV FLUSH SCH (09:12)
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
[2017-07-03] MEDS: ENOXAPARIN SODIUM 40 MG/0.4 ML SYRINGE SQ SCH (12:47)
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
[2017-07-03] MEDS ORDERED: LEVEMIR SQ (15:15)
[2017-07-03] MEDS ORDERED: OXYC1TAB63 PO (15:15)
[2017-07-03] MEDS ORDERED: METH500T3 PO (15:16)
[2017-07-03] MEDS ORDERED: ASPI81CH7 CHEW (15:17)
[2017-07-03] MEDS ORDERED: ATOR20TA15 PO (15:22)
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
[2017-07-03] MEDS ORDERED: ASPIRIN 81 MG CHEW TAB CHEW SCH ×2 (15:30→16:00)
[2017-07-03] MEDS ORDERED: ATORVASTATIN 20 MG TAB PO SCH (16:00)
[2017-07-03] MEDS ORDERED: ZITH500T PO (18:20)
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
[2017-07-03] MEDS ORDERED: AZITHROMYCIN 250 MG TAB PO SCH (21:00)
[2017-07-05] MEDS ORDERED: REMOVE OLD DURAGESIC (FENTANYL) PATCH T-DERMAL SCH (15:00)
== END 2017-07-03 19:15 | disposition home health service (06) | DRG 280 ==
LOC: NEPC 19:55 → NEDA 23:19 → UNDOADMOB 23:19 → NEDA 06-27 00:21 → HCIS 06-27 00:49
PROVIDERS: ADMIT Surgery; ATTEND Surgery
DX: S26.91XA Contusion of heart, unspecified with or without hemopericardium, initial encounter (principal); I21.4 Non-ST elevation (NSTEMI) myocardial infarction; J18.9 Pneumonia, unspecified organism; J90 Pleural effusion, not elsewhere classified; S27.321A Contusion of lung, unilateral, initial encounter; E11.40 Type 2 diabetes mellitus with diabetic neuropathy, unspecified; S22.42XA Multiple fractures of ribs, left side, initial encounter for closed fracture; E11.51 Type 2 diabetes mellitus with diabetic peripheral angiopathy without gangrene; R04.2 Hemoptysis; S27.69XA Other injury of pleura, initial encounter; J98.11 Atelectasis; M10.9 Gout, unspecified; J45.909 Unspecified asthma, uncomplicated; I10 Essential (primary) hypertension; K21.9 Gastro-esophageal reflux disease without esophagitis; E11.65 Type 2 diabetes mellitus with hyperglycemia; E66.9 Obesity, unspecified; E78.5 Hyperlipidemia, unspecified; S71.132A Puncture wound without foreign body, left thigh, initial encounter; M19.90 Unspecified osteoarthritis, unspecified site; T87.89 Other complications of amputation stump; I25.10 Atherosclerotic heart disease of native coronary artery without angina pectoris; X95.9XXA Assault by unspecified firearm discharge, initial encounter; Z79.4 Long term (current) use of insulin; Z89.512 Acquired absence of left leg below knee
CPT/HCPCS: 71010; 71250; 78320; 78399; 78452; 80048; 80053; 82550; 82552; 82948; 83735; 83880; 84484; 85007; 85025; 85027; 85610; 85730; 86403; 87070; 87077; 87186; 87205; 93005; 93017; 93306; 94150; 94640; 94667; 94668; 96361; 96374; A9502; A9503; J0456; J0692; J1170; J1650; J1815; J2270; J2785; J7030; J7050

== ENCOUNTER 2017-07-11 14:29 | Emergency (ER) | payer MEDICAID ==
[~2017-07-11] VITALS: Ht 185.4 cm; Wt 90.0 kg
[~2017-07-11 14:29] MED LIST changes: +ASPI81CH7 CHEW; +ATOR20TA15 PO; -BACT800T5 PO; -CIPR500T4 PO; -LANTUS2P SC; +LEVEMIR SQ; +METH500T3 PO; -NOVOLOGSS SQ; +OXYC1TAB63 PO; +ZITH500T PO
[2017-07-11 14:41] VITALS: BP 136/84; PULSE 80; RESP 18; TEMP 98.5; O2SAT 97
[2017-07-11] MEDS ORDERED: ONDANSETRON HCL 4 MG/2 ML VIAL IVP ONE (14:45)
[2017-07-11] MEDS ORDERED: HYDROmorphone HCL PF 1 MG/ML VIAL IVS ONE (14:45)
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
[2017-07-11] MEDS ORDERED: KETOROLAC TROMETHAMINE 30 MG/ML (IVP) VIAL IV PUSH ONE (15:45)
[2017-07-11] MEDS ORDERED: cefTRIAXone INJ 2,000 MG in SODIUM CHLORIDE 0.9% INJ 100 ML IV ONE (15:45)
[2017-07-11] MEDS ORDERED: CIPR-9 PO (15:48)
[2017-07-11] MEDS ORDERED: NAPR-239 PO (15:48)
[2017-07-11] MEDS ORDERED: PERC10TA27 PO (15:48)
--- NOTE | 2017-07-12 11:50 | EKG ---
Date Performed: 07/11/2017 Time Performed: 14:37:03 PTAGE: 46 years EKG: Sinus rhythm NORMAL ECG NO PREVIOUS TRACING DOCTOR: Justin Piña Interpretating Date/Time 07/12/2017 11:48:37
== END 2017-07-11 17:17 | disposition home or self-care (01) ==
LOC: NEPC 14:29
DX: J18.8 Other pneumonia, unspecified organism (principal)
CPT/HCPCS: 71250; 93005; 96374; 96375; 99285; J0696; J1170; J1885; J2405

== ENCOUNTER 2017-07-19 13:24 | Emergency (ER) | payer MEDICAID ==
[~2017-07-19] VITALS: Ht 185.4 cm; Wt 90.0 kg
[~2017-07-19 13:24] MED LIST changes: +CIPR-9 PO; +NAPR-239 PO; +PERC10TA27 PO
[2017-07-19 13:28] VITALS: BP 112/70; PULSE 76; RESP 18; TEMP 97.5; O2SAT 98
[2017-07-19] MEDS ORDERED: LANTUS2P SQ ×2 (13:34)
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
[2017-07-19] MEDS ORDERED: KETOROLAC TROMETHAMINE 60 MG/2 ML (IM) VIAL IM ONE (15:15)
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
== END 2017-07-19 15:40 | disposition home or self-care (01) ==
LOC: PHEFT 13:24
DX: R07.89 Other chest pain (principal)
CPT/HCPCS: 71020; 96372; 99284; J1885

== ENCOUNTER 2017-07-25 13:21 | Emergency (ER) | payer MEDICAID ==
[~2017-07-25] VITALS: Ht 188 cm; Wt 91.0 kg
[~2017-07-25 13:21] MED LIST changes: -ASPI81CH7 CHEW; -CIPR-9 PO; -LEVEMIR SQ; -METH500T3 PO; -NAPR-239 PO; -OXYC1TAB63 PO; -PERC10TA27 PO; -ZITH500T PO
[2017-07-25 13:34] VITALS: BP 128/73; PULSE 70; RESP 16; TEMP 97.8; O2SAT 98
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
[2017-07-25 14:32] LABS: AUTOMATED NEUTROPHIL # 6.1 TH/MM3 (1.8-7.7); BASOPHIL # 0.1 TH/MM3 (0-0.2); BASOPHIL % 0.8 % (0.0-2.0); EOSINOPHIL # 0.6 TH/MM3 (0-0.4); HEMATOCRIT 39.5 % (39.0-51.0); LYMPH % 22.9 % (9.0-44.0); LYMPHOCYTE # 2.3 TH/MM3 (1.0-4.8); MEAN CELL VOLUME 65.1 FL (80.0-100.0); MEAN CORPUSCULAR HEMOGLOBIN 21.3 PG (27.0-34.0); MEAN CORPUSCULAR HGB CONC 32.6 % (32.0-36.0); NEUT % 61.3 % (16.0-70.0); PLATELET COUNT 130 TH/MM3 (150-450); RED BLOOD COUNT 6.06 MIL/MM3 (4.50-5.90); RED CELL DISTRIBUTION WIDTH 19.6 % (11.6-17.2); WHITE BLOOD COUNT 9.9 TH/MM3 (4.0-11.0)
[2017-07-25 14:38] VITALS: BP 119/82; PULSE 68; RESP 17; TEMP 97.8; O2SAT 100
[2017-07-25 14:38] LABS: APTT (PATIENT) 25.2 SEC (24.3-30.1); PROTHROMBIN TIME - PATIENT 10.8 SEC (9.8-11.6)
[2017-07-25 14:43] LABS: HEMO FLAGS AUTO DIFF
[2017-07-25] MEDS ORDERED: KETOROLAC TROMETHAMINE 30 MG/ML (IVP) VIAL IV PUSH ONE (14:45)
[2017-07-25 14:52] LABS: ANION GAP 9 MEQ/L (5-15); AST (GOT) 20 U/L (15-37); BICARBONATE 23.7 MEQ/L (21.0-32.0); BLOOD UREA NITROGEN 12 MG/DL (7-18); CHLORIDE 104 MEQ/L (98-107); GLOMERULAR FILTRATION RATE 133 ML/MIN (>89); MAGNESIUM 1.9 MG/DL (1.5-2.5); SODIUM (NA) 137 MEQ/L (136-145)
[2017-07-25 14:57] LABS: ALKALINE PHOSPHATASE 189 U/L (45-117); ALT (GPT) 43 U/L (12-78); CREATINE KINASE 123 U/L (39-308); TOTAL BILIRUBIN ADULT 1.3 MG/DL (0.2-1.0)
[2017-07-25 15:09] LABS: CKMB 6.3 NG/ML (0.5-3.6)
[2017-07-25 15:14] LABS: BANDS 2 % (0-6); CORRECTED NUCLEATED RBC 4 /100 WBC (0-0); EOSINOPHILS 8 % (0-4); NEUTROPHIL # MANUAL DIFF 6.1 TH/MM3 (1.8-7.7); POLYS (SEG NEUTROPHILS) 60 % (16-70); WBC DIFF SAMPLE 100
[2017-07-25 15:15] LABS: PLATELET ESTIMATE SMEAR LOW (NORMAL); PLATELET MORPHOLOGY NORMAL (NORMAL); SCAN/DIFF FINAL DIFF MANUAL; STOMATOCYTES 1+ (NORMAL); TARGET CELLS 3+ (NORMAL)
[2017-07-25] MEDS ORDERED: IOHEXOL 350 MG/ML 10 ML VIAL (for RAD DIAG) IVCONTRAST ONE (15:35)
[2017-07-25 15:38] VITALS: RESP 18
--- NOTE | 2017-07-25 15:55 | RADRPT ---
EXAM DATE/TIME: 07/25/2017 15:23 [facility] COMPARISON: No previous studies available for comparison. INDICATIONS : Chest pain IV CONTRAST: 50 cc Omnipaque 350 (iohexol) IV RADIATION DOSE: 15.69 CTDIvol (mGy) MEDICAL HISTORY : Hypertension. Diabetes mellitus type 2. SURGICAL HISTORY : None. ENCOUNTER: Initial ACUITY: 2 days PAIN SCALE: 10/10 LOCATION: chest TECHNIQUE: Volumetric scanning of the chest was performed using a pulmonary embolism protocol MIP images were re constructed. Using automated exposure control and adjustment of the mA and/or kV according to patien t size, radiation dose was kept as low as reasonably achievable to obtain optimal diagnostic quality images. DICOM format image data is available electronically for review and comparison. Follow-up recommendations for detected pulmonary nodules are based at a minimum on nodule size and pa tient risk factors according to Fleischner Society Guidelines. FINDINGS: No filling defects to suggest pulmonary embolus. Multiple subcentimeter pulmonary nodules present in the upper lungs. Largest measures about 7 mm in the right upper lobe. An additional 4-5 mm nodules pr esent superior segment right lower lobe, left upper lobe and superior segment left lower lobe. These are probably benign. Subsegmental atelectasis in the lingula. No pleural or pericardial effusion. No adenopathy. CONCLUSION: 1. Negative for pulmonary embolus. 2. Subcentimeter nodules in the upper lungs bilaterally as above. Statistically findings are most lik lizzy benign and inflammatory or postinflammatory. Maury Love MD on July 25, 2017 at 15:42 Board Certified Radiologist. This report was verified electronically.
[2017-07-25 16:11] VITALS: BP 124/85; TEMP 97.9
--- NOTE | 2017-07-26 16:59 | EKG ---
Date Performed: 07/25/2017 Time Performed: 14:04:40 PTAGE: 46 years EKG: Sinus rhythm NONSPECIFIC T-WAVE ABNORMALITY BORDERLINE ECG Since PREVIOUS TRACING , no significant change noted PREVIOUS TRACIN07/11/2017 14.37 DOCTOR: Matilde Wagner Interpretating Date/Time 07/26/2017 16:58:01
== END 2017-07-25 16:15 | disposition home or self-care (01) ==
LOC: NEPC 13:21
DX: R07.9 Chest pain, unspecified (principal); S21.109D Unspecified open wound of unspecified front wall of thorax without penetration into thoracic cavity, subsequent encounter; S71.102D Unspecified open wound, left thigh, subsequent encounter; S27.329D Contusion of lung, unspecified, subsequent encounter; S22.49XD Multiple fractures of ribs, unspecified side, subsequent encounter for fracture with routine healing; R94.31 Abnormal electrocardiogram [ECG] [EKG]; M10.9 Gout, unspecified; I10 Essential (primary) hypertension; W34.00XD Accidental discharge from unspecified firearms or gun, subsequent encounter
CPT/HCPCS: 71275; 80053; 82550; 82552; 83735; 84484; 85007; 85027; 85610; 85730; 86403; 87070; 93005; 96374; 99285; J1885; Q9967

== ENCOUNTER 2017-08-19 15:44 | Emergency (ER) | payer MEDICAID ==
[~2017-08-19] VITALS: Ht 188 cm; Wt 90.0 kg
[~2017-08-19 15:44] MED LIST changes: -MAGN400S PO; -SENN1TAB PO
[2017-08-19 15:58] VITALS: BP 160/78; PULSE 89; RESP 19; TEMP 98.5; O2SAT 98
[2017-08-19] MEDS ORDERED: SODIUM CHLOR 0.9% 1000 ML INJ 1,000 ML IV ONE (16:15)
[2017-08-19] MEDS ORDERED: SODIUM CHLORIDE 0.9% FLUSH 10 ML FLUSH IVF PRN (16:15)
[2017-08-19] MEDS ORDERED: INSULIN HUMAN REGULAR 1,000 UNITS/10 ML VIAL IV PUSH ONE (16:15)
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
[2017-08-19 16:33] LABS: BLOOD GAS BASE EXCESS -3.3 mmol/L (-2-2); BLOOD GAS CARBOXYHEMOGLOBIN 1.7 % (0-4); BLOOD GAS HCO3 21 mmol/L (22-26); BLOOD GAS O2 HGB SATURATION 94 % (90-100); BLOOD GAS OXYGEN CONTENT 17.7 Vol % (12.0-20.0); BLOOD GAS PCO2 35 mmHg (38-42); BLOOD GAS PO2 86 mmHG (61-120); BLOOD GAS TOTAL HGB 13.3 G/DL (12.0-16.0); CRITICAL VALUE NO; DRAW SITE RT RADIAL; FIO2 21 %; NUMBER OF ARTERIAL PUNCTURES 1; TEMP CORR TO 98.6
[2017-08-19 16:34] LABS: STAT YES; ULNAR PULSE PRESENT
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
[2017-08-19 16:59] VITALS: BP 148/68; PULSE 81; RESP 15; O2SAT 99
[2017-08-19 17:04] VITALS: BP 148/68; PULSE 75; RESP 1; O2SAT 98
[2017-08-19 17:30] LABS: BLOOD, URINE NEG (NEG); GLUCOSE,URINE 1000 mg/dL (NEG); KETONE, URINE NEG (NEG); NITRITE,URINE NEG (NEG); PH, URINE 5.5 (5.0-8.5); URINE COLOR LIGHT-YELLOW (YELLW/STRAW)
[2017-08-19 17:32] LABS: COMMENT (UR) CULT NOT INDICATED; CULTURE IF INDICATED CULT NOT INDICATED
[2017-08-19 17:39] LABS: AUTOMATED NEUTROPHIL # 6.3 TH/MM3 (1.8-7.7); BASOPHIL # 0.1 TH/MM3 (0-0.2); BASOPHIL % 0.8 % (0.0-2.0); EOSINOPHIL # 0.2 TH/MM3 (0-0.4); EOSINOPHIL % 2.1 % (0.0-4.0); HEMATOCRIT 39.2 % (39.0-51.0); LYMPH % 22.3 % (9.0-44.0); LYMPHOCYTE # 2.1 TH/MM3 (1.0-4.8); MEAN CELL VOLUME 63.1 FL (80.0-100.0); MEAN CORPUSCULAR HEMOGLOBIN 21.6 PG (27.0-34.0); MEAN CORPUSCULAR HGB CONC 34.2 % (32.0-36.0); MONO % 8.3 % (0.0-8.0); NEUT % 66.5 % (16.0-70.0); PLATELET COUNT 176 TH/MM3 (150-450); RED BLOOD COUNT 6.22 MIL/MM3 (4.50-5.90); RED CELL DISTRIBUTION WIDTH 19.1 % (11.6-17.2); WHITE BLOOD COUNT 9.5 TH/MM3 (4.0-11.0)
[2017-08-19 17:43] LABS: HEMO FLAGS AUTO DIFF
[2017-08-19 17:56] LABS: ALT (GPT) 31 U/L (12-78)
[2017-08-19 17:58] LABS: ALKALINE PHOSPHATASE 185 U/L (45-117); BETA-HYDROXYBUTYRATE 0.12 MMOL/L (0.00-0.39)
[2017-08-19 17:59] LABS: ANION GAP 10 MEQ/L (5-15); AST (GOT) 24 U/L (15-37); BICARBONATE 20.8 MEQ/L (21.0-32.0); BLOOD UREA NITROGEN 16 MG/DL (7-18); CHLORIDE 103 MEQ/L (98-107); GLOMERULAR FILTRATION RATE 85 ML/MIN (>89); POTASSIUM 4.2 MEQ/L (3.5-5.1); SODIUM (NA) 134 MEQ/L (136-145)
[2017-08-19 18:30] LABS: SCAN/DIFF AUTO DIFF CONFIRMED
[2017-08-19 18:31] LABS: PLATELET ESTIMATE SMEAR NORMAL (NORMAL); PLATELET MORPHOLOGY ENLARGED (NORMAL); TARGET CELLS 2+ (NORMAL)
[2017-08-19] MEDS ORDERED: ACETAMINOPHEN 325 MG TAB PO ONE (19:45)
[2017-08-19 19:52] VITALS: BP 164/74; PULSE 81; RESP 16; O2SAT 100
--- NOTE | 2017-08-20 19:41 | EKG ---
Date Performed: 08/19/2017 Time Performed: 16:56:50 PTAGE: 46 years EKG: Sinus rhythm MARKED LEFT AXIS DEVIATION NONSPECIFIC T-WAVE ABNORMALITY SINCE PREVIOUS TRACING 07/25/2017, AXIS IS SLIGHTLY MORE LEFTWARD, OTHERWISE NO SIGNIFICANT CHANGE. ABNORMAL ECG PREVIOUS TRACING : 07/25/2017 14.04 DOCTOR: Kd Granado Interpretating Date/Time 08/20/2017 19:41:11
== END 2017-08-19 20:50 | disposition home or self-care (01) ==
LOC: NEPD 15:44
DX: E11.65 Type 2 diabetes mellitus with hyperglycemia (principal); R07.89 Other chest pain; M10.9 Gout, unspecified; J45.909 Unspecified asthma, uncomplicated; I10 Essential (primary) hypertension; R07.9 Chest pain, unspecified; R94.31 Abnormal electrocardiogram [ECG] [EKG]
CPT/HCPCS: 36600; 71010; 80053; 81001; 82010; 82805; 84484; 85025; 93005; 96361; 96374; 99285; J1815; J7030

== ENCOUNTER 2017-08-29 20:53 | Emergency (ER) | payer MEDICAID ==
[~2017-08-29] VITALS: Ht 188 cm; Wt 95.0 kg
[~2017-08-29 20:53] MED LIST changes: -ATOR20TA15 PO
[2017-08-29 21:02] VITALS: BP 147/102; PULSE 92; RESP 22; TEMP 98.3; O2SAT 98
[2017-08-29] MEDS ORDERED: SODIUM CHLOR 0.9% 1000 ML INJ 1,000 ML IV ONE ×2 (21:06)
[2017-08-29 21:08] VITALS: O2SAT 97
[2017-08-29] MEDS ORDERED: SODIUM CHLORIDE 0.9% FLUSH 10 ML FLUSH IVF PRN ×2 (21:15)
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
[2017-08-29 22:02] LABS: AUTOMATED NEUTROPHIL # 11.6 TH/MM3 (1.8-7.7); BASOPHIL # 0.2 TH/MM3 (0-0.2); EOSINOPHIL # 0.3 TH/MM3 (0-0.4); EOSINOPHIL % 1.9 % (0.0-4.0); HEMOGLOBIN 13.4 GM/DL (13.0-17.0); LYMPH % 14.8 % (9.0-44.0); LYMPHOCYTE # 2.3 TH/MM3 (1.0-4.8); MEAN CELL VOLUME 64.3 FL (80.0-100.0); MEAN CORPUSCULAR HEMOGLOBIN 22.1 PG (27.0-34.0); MEAN CORPUSCULAR HGB CONC 34.4 % (32.0-36.0); MEAN PLATELET VOLUME 10.4 FL (7.0-11.0); MONO % 6.2 % (0.0-8.0); MONOCYTE # 0.9 TH/MM3 (0-0.9); NEUT % 76.1 % (16.0-70.0); PLATELET COUNT 187 TH/MM3 (150-450); RED BLOOD COUNT 6.05 MIL/MM3 (4.50-5.90); RED CELL DISTRIBUTION WIDTH 18.7 % (11.6-17.2); WHITE BLOOD COUNT 15.2 TH/MM3 (4.0-11.0)
[2017-08-29 22:30] LABS: ALBUMIN 3.3 GM/DL (3.4-5.0); ALKALINE PHOSPHATASE 179 U/L (45-117); ALT (GPT) 40 U/L (12-78); AST (GOT) 40 U/L (15-37); BICARBONATE 19.9 MEQ/L (21.0-32.0); BLOOD UREA NITROGEN 13 MG/DL (7-18); CALCIUM 8.8 MG/DL (8.5-10.1); CHLORIDE 100 MEQ/L (98-107); CREATININE 1.04 MG/DL (0.60-1.30); GLOMERULAR FILTRATION RATE 93 ML/MIN (>89); SODIUM (NA) 131 MEQ/L (136-145); TOTAL BILIRUBIN ADULT 1.1 MG/DL (0.2-1.0); TOTAL PROTEIN 7.1 GM/DL (6.4-8.2); TROPONIN I LESS THAN 0.02 NG/ML (0.02-0.05)
[2017-08-29] MEDS ORDERED: MORPHINE SULFATE 8 MG/ML INJ IV PUSH ONE ×2 (22:30)
[2017-08-29 22:32] LABS: GLUCOSE,RANDOM 460 MG/DL (74-106); STOMATOCYTES 1+ (NORMAL)
[2017-08-29 22:34] LABS: TARGET CELLS 2+ (NORMAL)
[2017-08-29] MEDS ORDERED: MORPHINE SULFATE 8 MG/ML INJ ONE ×2 (22:35)
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
[2017-08-29 22:49] LABS: BILIRUBIN, URINE NEG (NEG); BLOOD, URINE NEG (NEG); GLUCOSE,URINE 1000 mg/dL (NEG); KETONE, URINE NEG (NEG); NITRITE,URINE NEG (NEG); URINE COLOR LIGHT-YELLOW (YELLW/STRAW); URINE LEUKOCYTE ESTERASE NEG (NEG)
--- NOTE | 2017-08-29 22:54 | EKG ---
Date Performed: 08/29/2017 Time Performed: 21:22:03 PTAGE: 46 years EKG: Sinus rhythm MARKED LEFT AXIS DEVIATION ABNORMAL ECG PREVIOUS TRACING : 08/19/2017 16.56 Compared to prior tracing no significant change DOCTOR: Dallas Bonds Interpretating Date/Time 08/29/2017 22:53:45
[2017-08-29 23:07] VITALS: BP 186/109; PULSE 81; RESP 22; O2SAT 97
[2017-08-29] MEDS ORDERED: LIDOCAINE HCL 1% 50 ML VIAL ONE ×2 (23:21)
[2017-08-29] MEDS ORDERED: INSULIN HUMAN REGULAR 1,000 UNITS/10 ML VIAL SQ ONE ×2 (23:30)
[2017-08-30] MEDS ORDERED: SODIUM CHLOR 0.9% 1000 ML INJ 1,000 ML IV ONE ×2 (00:45)
[2017-08-30] MEDS ORDERED: VANCOMYCIN INJ 1,000 MG in SODIUM CHLOR 0.9% 250 ML INJ 250 ML IV ONE ×4 (00:45)
[2017-08-30] MEDS ORDERED: KETOROLAC TROMETHAMINE 30 MG/ML (IVP) VIAL IV PUSH ONE ×2 (00:45)
[2017-08-30] MEDS ORDERED: PIPERACIL-TAZO 4.5 GM PREMIX 100 ML IV ONE ×2 (00:45)
[2017-08-30] MEDS ORDERED: MORPHINE SULFATE 8 MG/ML INJ IV PUSH ONE ×4 (00:45→04:00)
[2017-08-30 01:17] VITALS: BP 160/79; PULSE 89; RESP 20; O2SAT 98
[2017-08-30 02:12] LABS: WBC, SYNOVIAL FLUID 17800 /MM3 (0-200)
[2017-08-30] MEDS ORDERED: COLCHICINE 0.6 MG TAB PO ONE ×2 (02:30)
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
[2017-08-30] MEDS ORDERED: COLC1CAP3 PO ×2 (04:04)
[2017-08-30] MEDS ORDERED: HYDR-3516 PO ×2 (04:04)
[2017-08-30] MEDS ORDERED: INDO25CA PO ×2 (04:04)
== END 2017-08-30 05:00 | disposition home or self-care (01) ==
LOC: NEPC 20:53
DX: R07.89 Other chest pain (principal); M10.9 Gout, unspecified; E11.65 Type 2 diabetes mellitus with hyperglycemia; Z79.4 Long term (current) use of insulin
CPT/HCPCS: 20605; 71010; 73070; 80053; 81001; 82010; 82805; 83605; 84484; 85025; 87040; 87070; 87205; 89051; 89060; 93005; 96361; 96365; 96366; 96372; 96375; 96376; 99285; J1815; J1885; J2270; J2543; J3370; J7030; J7050